=== PATIENT | female | born 1985 | race Caucasian/White ===

== ENCOUNTER → 2016-08-21 | Outpatient (CLI) | payer BC ==
[~2016-08-21] MED LIST: GADAVIST IV PRN; GINGPOW2 PO; PRLSR20 PO; TURMPOW PO
--- NOTE | 2016-08-21 10:26 | DIAGNOSTIC IMAGING REPORT ---
MRI OF THE BRAIN WITHOUT AND WITH IV CONTRAST CLINICAL HISTORY: MIGRAINE W/VISION CHANGES COMPARISON STUDY: No previous studies for comparison. TECHNIQUE: Utilizing a 1.5 Kitty magnet and dedicated coil, multiplanar, multiecho imaging of the brain was performed pre and postcontrast administration. IV administration of 8 mL of Gadavist contrast was uneventful. FINDINGS: Diffusion-weighted images are normal. No evidence for an acute ischemic event. Signal characteristics of the cerebellar as well as cerebral hemispheres are within normal limits. Ventricular system is midline. No abnormal postcontrast enhancement. IMPRESSION: Normal study Electronically signed by: Daniel Bone M.D. 08/21/2016 10:25 AM Dictated Date/Time: 08/21/2016 10:22 AM
== END | disposition home or self-care (01) ==
LOC: C.OPENMRI 08:58
PROVIDERS: ATTEND Nurse Practitioner Adult Health
DX: G43.109 Migraine with aura, not intractable, without status migrainosus (principal); H53.9 Unspecified visual disturbance